=== PATIENT | female | born 1935 | race Caucasian/White ===

== ENCOUNTER → 2016-07-09 | Outpatient (CLI) | payer OTHER ==
--- NOTE | 2016-07-09 16:40 | MAMMOGRAPHY REPORT ---
BILATERAL DIGITAL SCREENING MAMMOGRAM WITH CAD: 07/09/2016 CLINICAL HISTORY: Routine screening. Patient has no complaints. TECHNIQUE: Bilateral CC and MLO views were obtained. Current study was also evaluated with a Comput er Aided Detection (CAD) system. COMPARISON: Comparison is made to exams dated: 07/04/2015 mammogram, 06/29/2014 mammogram, 04/27/2013 mammogram, 05/05/2012 mammogram, 04/23/2012 mammogram, and 04/22/2011 mammogram - [facility]. BREAST COMPOSITION: The tissue of both breasts is heterogeneously dense, which may obscure small ma sses. FINDINGS: There are benign coarse and popcorn calcifications in the breasts. No new suspicious mass , architectural distortion or cluster of microcalcifications is seen. IMPRESSION: ACR BI-RADS CATEGORY 1: NEGATIVE There is no mammographic evidence of malignancy. A 1 year screening mammogram is recommended. The p atient will receive written notification of the results. Approximately 10% of breast cancers are not detected with mammography. A negative mammographic repor t should not delay biopsy if a clinically suggestive mass is present. Geovanna Chanel M.D. ay/:07/09/2016 16:05:49 Television And Radio Repairer: Libra CUNNINGHAM(Marleen)(Deepthi), [facility] letter sent: Normal 1/2 BI-RADS Code: ACR BI-RADS Category 1: Negative
== END | disposition home or self-care (01) ==
LOC: C.MAMM 14:45
PROVIDERS: ATTEND Internal Medicine Pulmonary Disease
DX: Z12.31 Encounter for screening mammogram for malignant neoplasm of breast (principal)

== ENCOUNTER → 2016-07-23 | Outpatient (CLI) | payer OTHER ==
[2016-07-23 10:15] LABS: BASO % 0.3 %; BASO ABS # 0.02 K/uL (0-0.2); COMPLETE YES; EOS % 2.5 %; HEMATOCRIT 39.6 % (37-47); IG% 0.1 %; LYMPH % 30.4 %; LYMPH ABS # 2.27 K/uL (1.2-3.4); MEAN CORPUSCULAR HGB CONC 34.1 g/dl (32-36); MEAN PLATELET VOLUME 10.6 fL (7.4-10.4); MONO % 8.8 %; NEUT % 57.9 %; PLATELET COUNT 282 K/uL (130-400); WHITE BLOOD COUNT 7.47 K/uL (4.8-10.8)
[2016-07-23 10:58] LABS: ALT/SGPT 17 U/L (12-78); AST/SGOT 11 U/L (15-37); BLOOD UREA NITROGEN 17 mg/dl (7-18); CARBON DIOXIDE 28 mmol/L (21-32); CHLORIDE 106 mmol/L (98-107); CREATININE 0.79 mg/dl (0.60-1.20); GLUCOSE 103 mg/dl (70-99); POTASSIUM 4.1 mmol/L (3.5-5.1); SODIUM 140 mmol/L (136-145)
[2016-07-23 11:01] LABS: ALB/GLOB RATIO 1.1 (0.9-2); ALKALINE PHOSPHATASE 68 U/L (45-117); CHOLESTEROL 185 mg/dl (0-200); HDL CHOLESTEROL 91 mg/dl; LDL CHOLESTEROL CALCULATED 78 mg/dl; TRIGLYCERIDES 80 mg/dl (0-150); VERY LOW DENSITY LIPOPROT CALC 16 mg/dl
== END | disposition home or self-care (01) ==
LOC: C.LAB1850 09:06
PROVIDERS: ATTEND Internal Medicine Pulmonary Disease
DX: E78.5 Hyperlipidemia, unspecified (principal); I10 Essential (primary) hypertension; K21.9 Gastro-esophageal reflux disease without esophagitis; R10.9 Unspecified abdominal pain

== ENCOUNTER → 2017-01-21 | Outpatient (CLI) | payer OTHER ==
[2017-01-21 10:35] LABS: BASO % 0.6 %; BASO ABS # 0.04 K/uL (0-0.2); COMPLETE YES; EOS % 2.9 %; IG% 0.1 %; LYMPH % 33.4 %; LYMPH ABS # 2.32 K/uL (1.2-3.4); MEAN CELL VOLUME 88.9 fL (80-100); MEAN CORPUSCULAR HEMOGLOBIN 29.6 pg (25-34); MEAN CORPUSCULAR HGB CONC 33.3 g/dl (32-36); MEAN PLATELET VOLUME 10.9 fL (7.4-10.4); MONO % 8.8 %; NEUT % 54.2 %; PLATELET COUNT 271 K/uL (130-400); WHITE BLOOD COUNT 6.94 K/uL (4.8-10.8)
[2017-01-21 10:39] LABS: ALT/SGPT 18 U/L (12-78); BLOOD UREA NITROGEN 14 mg/dl (7-18); BUN/CREATININE RATIO 16.6 (10-20); CALCIUM 9.2 mg/dl (8.5-10.1); CARBON DIOXIDE 29 mmol/L (21-32); CHLORIDE 104 mmol/L (98-107); CHOLESTEROL 171 mg/dl (0-200); CREATININE 0.83 mg/dl (0.60-1.20); GLUCOSE 94 mg/dl (70-99); POTASSIUM 4.3 mmol/L (3.5-5.1); SODIUM 138 mmol/L (136-145)
[2017-01-21 10:49] LABS: ALKALINE PHOSPHATASE 68 U/L (45-117); AST/SGOT 15 U/L (15-37); CHOLESTEROL/HDL RATIO 1.9; HDL CHOLESTEROL 91 mg/dl; LDL CHOLESTEROL CALCULATED 68 mg/dl; TRIGLYCERIDES 60 mg/dl (0-150); VERY LOW DENSITY LIPOPROT CALC 12 mg/dl
[2017-01-21 11:09] LABS: ESTIMATED AVERAGE GLUCOSE 120 mg/dl; HA1C FLAG Normal (Normal)
== END | disposition home or self-care (01) ==
LOC: C.LAB1850 09:11
PROVIDERS: ATTEND Internal Medicine Pulmonary Disease
DX: E78.5 Hyperlipidemia, unspecified (principal); I10 Essential (primary) hypertension; E11.9 Type 2 diabetes mellitus without complications

== ENCOUNTER → 2017-07-10 | Outpatient (CLI) | payer OTHER ==
--- NOTE | 2017-07-11 08:29 | MAMMOGRAPHY REPORT ---
BILATERAL DIGITAL SCREENING MAMMOGRAM TOMOSYNTHESIS WITH CAD: 07/10/2017 CLINICAL HISTORY: Routine screening. TECHNIQUE: Breast tomosynthesis in addition to standard 2D mammography was performed. Current study was also evaluated with a Computer Aided Detection (CAD) system. COMPARISON: Comparison is made to exams dated: 07/09/2016 mammogram, 07/04/2015 mammogram, 06/29/2014 ma mmogram, 04/27/2013 mammogram, 04/23/2012 mammogram, and 04/22/2011 mammogram - [facility]ter. BREAST COMPOSITION: The tissue of both breasts is heterogeneously dense, which may obscure small mas ses. FINDINGS: No suspicious masses, calcifications, or areas of architectural distortion are noted in ei ther breast. There has been no significant interval change compared to prior exams. Scattered bilater al benign-appearing calcifications are not significantly changed. IMPRESSION: ACR BI-RADS CATEGORY 2: BENIGN There is no mammographic evidence of malignancy. A 1 year screening mammogram is recommended. The pa tient will receive written notification of the results. Approximately 10% of breast cancers are not detected with mammography. A negative mammographic report should not delay biopsy if a clinically suggestive mass is present. Martha Jang M.D. /:07/10/2017 12:38:13 Welder Setter Electron Beam Machine: Kei CARTER)(Deepthi), [facility] letter sent: Normal 1/2 BI-RADS Code: ACR BI-RADS Category 2: Benign
== END | disposition home or self-care (01) ==
LOC: C.MAMM 11:48
PROVIDERS: ATTEND Internal Medicine Pulmonary Disease
DX: Z12.31 Encounter for screening mammogram for malignant neoplasm of breast (principal)

== ENCOUNTER 2019-11-08 09:41 | Observation (INO) ==
--- NOTE | 2019-11-03 09:25 | Anesthesiology Consultation ---
Date of Service November 03, 2019 Assessment & Plan (1) Encounter for pre-operative examination: COVID Status: As of 10/28 nurse assessment, patient denies travel to endemic area, known exposure/sick contacts, or symptoms of COVID19. Preoperative COVID19 testing to be completed on 11/02. Pending pre-op EKG. If not completed prior to DOS, will order for morning of. Chart Review Chart Review: Acceptable Risk for Surgery (pending EKG) and Patient NOT seen in Pre Admission Testing History Surgery Operation Date: 11/08/19 07:00 Proposed Procedures p Right Breast Lumpectomy with Needle Localization and Right [place] Lymph Node Biopsy - Ryan Chaudhary MD, FACS Height/Weight Height: 5 ft 5 in Weight: 91.172 kg Allergies Allergy/AdvReac Type Severity Reaction Status Date / Time No Known Drug Allergies Allergy Verified 10/29/19 13:33 Medications Home Medications Medication Instructions Recorded Confirmed Last Taken albuterol sulfate 90 mcg/actuation 2 puffs INHALATION Q4H PRN #18 gm 03/23/19 10/29/19 Unknown aerosol inhaler metoprolol succinate 100 mg 100 mg PO BID #180 tab 08/23/19 10/29/19 Unknown tablet,extended release 24 hr aspirin 325 mg tablet,delayed 325 mg PO BID tab 10/21/19 10/29/19 Unknown release multivit-iron 18 mg-folic acid 400 1 tab PO QAM tab 10/21/19 10/29/19 Unknown mcg-calcium 500 mg-minerals tablet losartan 50 mg PO QAM 10/29/19 10/29/19 Unknown pantoprazole 40 mg PO QAM 10/29/19 10/29/19 Unknown pravastatin 20 mg PO PM 10/29/19 10/29/19 Unknown Past Medical History Medical History (Updated 11/03/19 @ 09:23 by Cuba Bird) Asthma WELL CONTROLLED > RES INH MOSTLY PRN DURING WINTER Breast cancer RIGHT Cervical disc disease (Inactive) Diverticulosis DJD (degenerative joint disease), multiple sites (Inactive) GERD without esophagitis Hyperlipidemia Hypertension Osteoarthritis Prediabetes A1C 6.1% Past Surgical History Surgical History (Updated 10/29/19 @ 13:43 by Mikaela Fung RN) H/O colonoscopy within the last 10 years H/O lumpectomy Left Breast - 1970 (Benign) History of basal cell cancer Nose WITH REMOVAL History of cataract surgery BILAT History of tooth extraction Social History Smoking Status: Former smoker tobacco type: cigarettes Do You Dip or Chew Tobacco: No Smoking End Date: 1989 Hx Alcohol Use: Yes Alcohol type: wine and hard liquor alcohol intake frequency: 0-2 drinks per day Alcohol Intake Frequency Comment: GLASS OF WINE WITH DINNER Hx Substance Use: No substance use type: does not use Testing Laboratory Results 09/15/19 WBC: 6.41 H/H: 13.9/43.3 PLATELETS: 283 SODIUM: 138 POTASSIUM: 4.5 CHLORIDE: 105 CO2: 30 BUN: 18 CREATININE: 0.87 GLUCOSE: 97
--- NOTE | 2019-11-04 09:23 | Electrocardiogram Report ---
Test Reason : Blood Pressure : / mmHG Vent. Rate : 056 BPM Atrial Rate : 000 BPM P-R Int : 000 ms QRS Dur : 078 ms QT Int : 392 ms P-R-T Axes : 000 033 015 degrees QTc Int : 378 ms Atrial fibrillation with slow ventricular response Abnormal ECG No previous ECGs available Confirmed by Lawrence Gaspar ([id number]) on 11/04/2019 9:23:06 AM Referred By: Ryan Chaudhary Confirmed By:Lawrence Gaspar
--- NOTE | 2019-11-08 08:05 | History & Physical Bridge Note ---
Date of Service November 08, 2019 History & Physical Bridge Note I have examined the patient, reviewed the History & Physical and in the interval since the performance of the History & Physical I have noted the following changes of clinical significance: no changes noted
[~2019-11-08 09:41] MED LIST: CEFAZOLIN 2000MG 2,000 MG/15 ML SYR IV SCH; LR 15ML/HR IV SCH
--- NOTE | 2019-11-08 10:46 | Nuclear Medicine Report ---
NM sentinel node inject only (right breast) CLINICAL HISTORY: RIGHT BREAST CANCER, INJECTION ONLY COMPARISON STUDY: No previous studies for comparison. FINDINGS: A timeout was performed. The patient was prepped in a sterile fashion. 5 right breast periareolar intradermal injections were performed utilizing a total dose of 0.47 mCi o f technetium 99m Lymphoseek. The patient was sent to the operating room for intraoperative localization IMPRESSION: Successful right breast lymphoscintigraphy injection. ACT 112: Negative or not required by law. Electronically signed by: Richie Mehta M.D. 11/08/2019 10:45 AM
[2019-11-08] MEDS ORDERED: LIDOCAINE HCL 2% 2 ML VIAL/AMP(20MG/ML) INFIL ONE (11:46)
[2019-11-08] MEDS ORDERED: fentaNYL citrate 100 MCG/2 ML VIAL ONE ×2 (11:46→12:49)
[2019-11-08] MEDS ORDERED: PROPOFOL IV EMULSION 10 MG/ML 20 ML VIAL IV ONE (11:46)
[2019-11-08] MEDS ORDERED: ONDANSETRON INJ 2 MG/ML 2 ML VIAL ONE (11:46)
[2019-11-08] MEDS ORDERED: BUPIVACAINE 0.5 % 5 MG/1 ML MPF 30ML VIAL ONE (11:52)
[2019-11-08] MEDS ORDERED: METHYLENE BLUE 0.5% 10 ML VIAL ONE (11:52)
[2019-11-08] MEDS ORDERED: ePHEDrine sulfate 50 MG/ML SYR ONE (12:25)
[2019-11-08] MEDS ORDERED: PHENYLEPHRINE 100MCG/ML 5ML SYR ONE (12:25)
[2019-11-08] MEDS ORDERED: ePHEDrine sulfate 50 MG/ML AMP IV PRN (12:29)
[2019-11-08] MEDS ORDERED: fentaNYL citrate 100 MCG/2 ML VIAL IV PRN (12:29)
[2019-11-08] MEDS ORDERED: ATROPINE SULFATE 0.1 MG/ML 10ML SYR IV PRN (12:29)
[2019-11-08] MEDS ORDERED: ONDANSETRON INJ 2 MG/ML 2 ML VIAL IV PRN ×2 (12:29→14:41)
--- NOTE | 2019-11-08 13:20 | Post Operative Brief Note ---
PG Immediate Post Op with CF Date of Surgery November 08, 2019 Pre & Post Diagnosis Operation Date: 11/08/19 11:40 Pre-Op Diagnosis: Invasive ductal carcinoma of Right Breast Post-Op Diagnosis: same I identified the patient and participated in the time-out.: Yes Procedure Operation Date: 11/08/19 11:40 Actual Procedures p Right Breast Lumpectomy with Nida Yolk Spray Drier and Right [place] Lymph Node Biopsy(Right) - Ryan Chaudhary MD, FACS Surgeon Ryan Chaudhary MD, FACS Cutch Cleaner Miracle Pino Estimated Blood Loss 10 Findings Consistent with Post-Op Diagnosis Specimens Specimen Description: Frozen Section 1. Right sentinel Lymph node- sent at 1242 Fresh A. Right Breast tissue, skin anterior, long silk lateral, short silk medial, plain superior- sent at 1306 B. Additional superior tissue, long silk lateral, short silk medial, methylene blue new margin- sent at 1306 C. Additional inferior tissue, long silk lateral, short silk medial, methylene blue new margin- sent at 1306
[2019-11-08] MEDS ORDERED: ACETAMINOPHEN 1,000 MG/100 ML VIAL IV ONE (13:21)
--- NOTE | 2019-11-08 13:42 | Operative Report (OR) ---
DATE OF OPERATION: 11/08/2019 NAME OF OPERATION: Right lumpectomy with sentinel lymph node biopsy with MAXX Photocopier Technician. STAFF SURGEON: Ryan Chaudhary MD WATER RESOURCES TECHNICAL OFFICER: Nell Pino PA-C. ANESTHESIA: General. PREOPERATIVE DIAGNOSIS: Right breast cancer. POSTOPERATIVE DIAGNOSIS: Same. DESCRIPTION OF PROCEDURE: The patient was brought in the operating room and placed on the operating table in supine position. Her right arm was extended on an arm board. Her breast and axilla were prepped and draped in usual fashion. My placement assistant helped with prepping, draping, removal of the breast tissue and lymph nodes and closure of the wounds. Incision was made in the right axilla anesthetizing incisions using 0.5% plain Marcaine, carrying dissection down deep identifying the sentinel node sent for frozen section and found to be negative. During the frozen section we performed lumpectomy using the MAXX Photocopier Technician excising the initial breast tissue, marking it with a long silk suture lateral, short silk suture medial, skin anterior and a plane suture superior. It was placed into the Faxitron and Dr. Chanel felt that the clip was in the center of the tissue. I then took additional superior and inferior tissue with it marked long silk lateral, short silk medial, methylene blue new margin. Clips were placed at the level of the tumor. Deep tissue in both incisions was closed using 2-0 plain suture and then the skin in the axilla closed using 4-0 nylon suture and then the breast subcuticular 4-0 Monocryl with Steri-Strips. Dressings applied and patient transferred to recovery room in stable condition. I attest to the content of the Intraoperative Record and any orders documented therein. Any exception s are noted below.
--- NOTE | 2019-11-08 14:16 | Anesthesiology Progress Note ---
Date of Service November 08, 2019 Anesthesia Post Procedure Vital Signs Vital Signs: Temp Pulse Pulse Resp BP Pulse Ox 11/08/19 14:05 36.5 C 86 16 125/77 97 11/08/19 13:55 72 16 125/71 97 11/08/19 13:45 74 16 123/85 100 11/08/19 13:35 85 16 131/79 99 11/08/19 13:28 36.3 C L 89 16 135/89 99 11/08/19 10:44 37.2 C 95 H 18 129/89 96 Transfer of Care Handoff Completed per policy Notes Mental Status: alert / awake / arousable and participated in evaluation Patient Amnestic to Procedure: Yes Nausea / Vomiting: adequately controlled Pain: adequately controlled Airway Patency, RR, SpO2: stable & adequate BP & HR: stable & adequate Hydration State: stable & adequate Anesthetic Complications: no major complications apparent and Pt Satisfied with anesthetic care
[2019-11-08] MEDS ORDERED: ALBUTEROL HFA 8 GM INHALER INH PRN (14:41)
[2019-11-08] MEDS ORDERED: PROMETHAZINE HCL 12.5 MG in SODIUM CHLORIDE 0.9% 50 ML IV PRN (14:41)
[2019-11-08] MEDS ORDERED: HYDROCODONE/ACETAMOPHEN 5/325MG TAB PO PRN ×2 (14:41)
[2019-11-08] MEDS ORDERED: MoRPHine SULFATE 2 MG/ML CARP IV PRN ×2 (14:41)
[2019-11-08] MEDS ORDERED: ACETAMINOPHEN 325 MG TAB PO PRN (14:41)
[2019-11-08] MEDS ORDERED: SODIUM CHLORIDE 0.9% 1000ML 1,000 ML IV SCH (14:41)
--- NOTE | 2019-11-08 15:36 | Mammography Report ---
SPECIMEN: 11/08/2019 CLINICAL HISTORY: 84-year-old woman with recent biopsy-proven infiltrating ductal carcinoma in the 4: 00 to 5:00 middle one third of the right breast. She presents for lumpectomy including specimen radio graphy. Wireless localization with Nida Machine Steak Tenderizer was performed 10/29/2019. COMPARISON: Comparison is made to exams dated: 10/29/2019 mammogram, 10/29/2019 localization, 10/12/2019 mammogram, 10/12/2019 ultrasound biopsy, 10/06/2019 ultrasound, and 10/06/2019 mammogram - [facility]. FINDINGS: Right breast surgical specimen radiograph was performed which demonstrates the ribbon-shape d biopsy marker, Nida Machine Steak Tenderizer reflector and density centrally within the tissue specimen, compatible wi th successful preoperative localization and subsequent surgical excision. Final surgical pathology i s pending. IMPRESSION: SPECIMEN Right breast surgical specimen radiograph, as above. Geovanna Chanel M.D. ay/:11/08/2019 14:01:05 Rocket Engine Mechanic: OR Technologist, [facility]
[2019-11-08] MEDS: CEFAZOLIN 1000MG 1,000 MG/7.5 ML SYR IV SCH (20:23)
[2019-11-08] MEDS: METOPROLOL SUCC 50MG EXT REL TAB PO SCH (20:24)
[2019-11-08] MEDS ORDERED: PRAVASTATIN SOD 20 MG TAB PO SCH (21:00)
[2019-11-09] MEDS: CEFAZOLIN 1000MG 1,000 MG/7.5 ML SYR IV SCH (04:22)
[2019-11-09 04:33] VITALS: TEMP 98.1
[2019-11-09 07:12] VITALS: BP 133/83; O2SAT 94
[2019-11-09] MEDS: METOPROLOL SUCC 50MG EXT REL TAB PO SCH (08:04)
[2019-11-09 08:35] VITALS: PULSE 72
[2019-11-09] MEDS ORDERED: LOSARTAN POTASSIUM 50 MG TAB PO SCH (09:00)
[2019-11-09] MEDS ORDERED: PANTOprazole 40 MG TAB PO SCH (09:00)
--- NOTE | 2019-11-09 11:19 | Discharge Summary (DS) ---
PRINCIPAL DIAGNOSIS: Right breast cancer. PROCEDURES: The patient underwent right lumpectomy with sentinel lymph node biopsy. HISTORY OF PRESENT ILLNESS: The patient is an 84-year-old female with biopsy proven right breast cancer, brought into the hospital for definitive surgery. On 11/08/2019, she underwent right lumpectomy with sentinel lymph node biopsy, which she tolerated very well. Has done very well overnight and is felt stable for discharge home today to be followed in the surgical clinic within 1 week.
== END 2019-11-09 10:51 | disposition home health service (06) ==
LOC: 2N 09:41 → ASU 09:41